=== PATIENT | female | born 1960 ===

== ENCOUNTER → 2018-08-07 | Outpatient (CLI) | payer OTHER ==
[~2018-08-07] MED LIST: AMPDEX30CR PO; ASPI81EC PO; BIEST; BUPR150ER PO; CHOL10002 PO; CODACE30 PO; ERGO400 PO; EZET10-20 PO; LEVSOD150 PO; MELO7.5 PO; SANCTURA; VALSARTAN40 MG PO
== END | disposition home or self-care (01) ==
LOC: LAB 18:47 → LAB SHORT 18:47
DX: E03.9 Hypothyroidism, unspecified (principal)
CPT/HCPCS: 84443

== ENCOUNTER → 2019-12-06 | Outpatient (CLI) | payer OTHER | END | disposition home or self-care (01) | LOC: LAB 15:06 → LAB SHORT 15:06 | DX: N39.0 Urinary tract infection, site not specified (principal) | CPT/HCPCS: 87077; 87086; 87186 ==

== ENCOUNTER → 2021-03-10 | Outpatient (CLI) | payer BC | END | disposition home or self-care (01) | LOC: LAB SHORT 15:19 | DX: L57.0 Actinic keratosis (principal); L81.4 Other melanin hyperpigmentation | CPT/HCPCS: 88305 ==

== ENCOUNTER → 2021-08-20 | Outpatient (CLI) | payer BC | END | disposition home or self-care (01) | LOC: LAB 16:00 → LAB SHORT 16:00 | DX: E03.9 Hypothyroidism, unspecified (principal) | CPT/HCPCS: 84443 ==

== ENCOUNTER 2025-01-09 10:36 | Day surgery (SDC) | payer OTHER ==
[2025-01-09] VITALS (8 sets, daily range): BP systolic 101–170; BP diastolic 70–86
[~2025-01-09] VITALS: Ht 167.6 cm; Wt 85.7 kg
[~2025-01-09 10:36] MED LIST changes: +Aciphex20 MG; +Amlodipine Bes2.5 MG; +ESTRADIOL (ONC1 EA11; +MELO7.5
[2025-01-09] MEDS ORDERED: Benzocaine Oral Spray 0.5ML UD ONE (11:15)
--- NOTE | 2025-01-09 11:47 | NUR ---
01/09/25 Dottie Cook CONFIRMED AND REVIEWED H&P, MEDCICATIONS, ALLERGIES, MEDICAL HISTORY, RESPIRATORY HISTORY, VITAL SIGNS, 3-LEAD EKG, CONSENTS, AND PHYSICIAN ORDERS. PATIENT CONFIRMS NPO STATUS AND AGREES WITH SCHEDULED PROCEDURE. MONITOR INTACT WITH CONTINUOUS PULSE OXIMETRY, CAPNOGRAPHY, 3-LEAD EKG, INTERMITTENT BP. SUPPLEMENTAL O2 TO BE TITRATED THROUGHOUT PROCEDURE TO MAINTAIN O2 SATURATION ABOVE 90%. PATIENT DETERMINED TO BE ASA APPROPRIATE FOR PROPOFOL SEDATION PRIOR TO START OF PROCEDURE BY . MALLAMPATI CLASS 2 AIRWAY: COMPLETE VISUALIZATION OF THE UVULA.
--- NOTE | 2025-01-09 12:46 | NUR ---
01/09/25 1246 Wilver Cox PT GIVEN DISCHARGE INSTRUCTIONS PT VERBALIZED UNDERSTANDING. PT HAD NO C/O OF NAUSEA OR VOMITING NO C/O OF SORE THROAT. PT D/C VIA WC TO RIDE HOME (BROTHER)
== END 2025-01-09 23:00 | disposition home or self-care (01) ==
LOC: ORSCMMR 10:36 → ORD 11:30 → ORSCMMR 23:00
PROVIDERS: Internal Medicine Gastroenterology
PROC: 0DB48ZX Excision of Esophagogastric Junction, Via Natural or Artificial Opening Endoscopic, Diagnostic (ICD-10-PCS; principal; 2025-01-09 11:30)
PROC: 0DB58ZX Excision of Esophagus, Via Natural or Artificial Opening Endoscopic, Diagnostic (ICD-10-PCS; principal; 2025-01-09 11:30)
DX: K22.70 Barrett's esophagus without dysplasia (principal); E03.9 Hypothyroidism, unspecified; F32.A Depression, unspecified; Z79.899 Other long term (current) drug therapy
CPT/HCPCS: 88305; A9270; J2704; J7120